=== PATIENT | female | born 1975 | race African-American/Black ===

== ENCOUNTER 2016-05-03 19:32 | Emergency (ER) | payer OTHER ==
[2016-05-03 19:41] VITALS: BP 122/66; PULSE 81; TEMP 97.8; BMI 25.4
--- NOTE | 2016-05-03 21:08 | PDOC ---
History of Present Illness - General History Source: Patient Exam Limitations: No Limitations - History of Present Illness Initial Comments: 05/03/16 21:21 The patient is a 40 year old female, with a significant past medical history of high cholesterol, endometriosis, and GERD who presents to the emergency department with intermittent burning chest pain earlier today. The patient ranks her pain a 4/10 in pain intensity. She notes her pain often radiates to her back, abdomen, and right shoulder. She notes her pain often feels like heaviness when she lays back. She denies any pain in her chest with deep inspirations. She reports seeing her GI doctor earlier this week for constipation and was discharged home with miralax . She denies eating any new/ strange foods. She does note eating more chocolate than normal over the holidays , and notes eating 3 pieces of candy (chocolate turtles) last night. She denies any LEs of swelling. She denies fever, chills, headache and dizziness. She denies nausea, vomit, and diarrhea She denies dysuria, frequency, urgency and hematuria. Allergies: NKA Past surgical history: Appendectomy. Laparoscopy (july,) Social history: Denies any recent EtOH, drugs, and tobacco use. Family history: Heart disease (maternal) <Reginaldo Gonzalez - Last Filed: 05/03/16 21:27> <Elda Lara - Last Filed: 05/04/16 05:06> - General Chief Complaint: Chest Pain Stated Complaint: BURNING TO THE CHEST AREA Time Seen by Provider: 05/03/16 19:50 Past History <Reginaldo Gonzalez - Last Filed: 05/03/16 21:27> - Past Medical History GI Disorders: Yes (REFLUX) - Psycho/Social/Smoking Cessation Hx Anxiety: No Suicidal Ideation: No Smoking History: Never smoked Have you smoked in the past 12 months: No Number of Cigarettes Smoked Daily: 0 Information on smoking cessation initiated: No Hx Alcohol Use: No Drug/Substance Use Hx: No Substance Use Type: None <Elda Lara - Last Filed: 05/04/16 05:06> - Past Medical History Allergies/Adverse Reactions: Allergies Allergy/AdvReac Type Severity Reaction Status Date / Time No Known Allergies Allergy Verified 02/04/16 11:48 Home Medications: Ambulatory Orders Lansoprazole [Prevacid 24Hr (OTC) -] 15 mg PO DAILY 02/04/16 Review of Systems - Review of Systems All Other Systems: Reviewed and Negative <Reginaldo Gonzalez - Last Filed: 05/03/16 21:27> *Physical Exam - Vital Signs Last Vital Signs Temp Pulse Resp BP Pulse Ox 97.8 F 81 14 122/66 100 05/03/16 19:36 05/03/16 19:36 05/03/16 19:36 05/03/16 19:36 05/03/16 19:51 - Physical Exam Comments: 05/03/16 21:21 GENERAL: The patient is awake, alert, and fully oriented, in no acute distress. HEAD: Normal with no signs of trauma. EYES: Pupils equal, round and reactive to light, extraocular movements intact, sclera anicteric, conjunctiva clear with no pallor. ENT: Ears normal, nares patent, oropharynx clear without exudates. Moist mucous membranes. NECK: Normal range of motion, supple without lymphadenopathy, JVD, or masses. CHEST WALL: Mild tenderness to palpation of the left 2nd and 3rd intercostal space. No step offs. No crepitus. LUNGS: Breath sounds equal, clear to auscultation bilaterally. No wheeze/ crackles. HEART: Regular rate and rhythm, normal S1 and S2 without murmur or rub. ABDOMEN: Mild epigastric tenderness. Soft/nondistended. BS wnl. No guarding or rebound. No palpable masses. No hepatosplenomegaly. EXTREMITIES: Normal range of motion, no edema. No clubbing or cyanosis. No cords , erythema, or tenderness. NEUROLOGICAL: Cranial nerves II through XII grossly intact. Normal speech, normal gait. PSYCH: Normal mood, normal affect. SKIN: Warm, Dry, normal turgor, no rashes or lesions noted. <Reginaldo Gonzalez - Last Filed: 05/03/16 21:27> - Vital Signs Last Vital Signs Temp Pulse Resp BP Pulse Ox 97.8 F 81 14 122/66 100 05/03/16 19:36 05/03/16 19:36 05/03/16 19:36 05/03/16 19:36 05/03/16 19:51 <Elda Lara - Last Filed: 05/04/16 05:06> ED Treatment Course - LABORATORY CBC & Chemistry Diagram: 05/03/16 21:48 05/03/16 21:48 <Elda Lara - Last Filed: 05/04/16 05:06> Medical Decision Making - Medical Decision Making Documentation has been prepared under my direction and personally reviewed by me in its entirety. I attest that this documented accurately reflects all work, treatment, procedures and medical decision making performed by me. As noted above, this 40-year-old woman with a history of GERD presents with one- day history of burning type chest pain. Although the patient admits to eating more of her GERD "trigger foods", she does have some risk factors for coronary artery disease. Exam notable for some mild tenderness in the left upper chest and epigastrium. Otherwise, exam is normal. Twelve-lead electrocardiogram shows normal sinus rhythm at 81 bpm; intervals, wave forms and axis are all normal. No evidence of acute ST or T-wave abnormalities. Because the patient has some risk factors for coronary artery disease, chemistry profile with cardiac enzymes as well as CBC was evaluated. Patient also received protonix 40 mg IV Laboratory evaluation is essentially normal. Patient felt significantly better after Protonix. It is likely that most of the patient's pain is secondary to GERD with mild esophagitis. Her chest wall tenderness may signal that she also has some muscle strain involved in the pain that she is experienced today The patient had until recently taken prescription strength PPI; when her symptoms improved, she began [id number] formulations. She states that she will call her PMD tomorrow to ask her advice about changing back to prescription PPI. Meanwhile, she will avoid things that worsen her GERD such as chocolate, acidic foods and alcohol. She should return to the ER if she has persistent severe chest pain or experiences shortness of breath/diaphoresis/nausea <Elda Lara - Last Filed: 05/04/16 05:06> *DC/Admit/Observation/Transfer - Attestations Scribe Attestion: 05/03/16 21:12 Documentation prepared by Reginaldo Gonzalez, acting as medical billing coordinator for Elda Lara MD. <Reginaldo Gonzalez - Last Filed: 05/03/16 21:27> <Elda Lara - Last Filed: 05/04/16 05:06> Diagnosis at time of Disposition: Atypical chest pain GERD (gastroesophageal reflux disease) Qualifiers: Esophagitis presence: with esophagitis Qualified Code(s): K21.0 - Gastro- esophageal reflux disease with esophagitis - Discharge Dispostion Disposition: HOME Condition at time of disposition: Stable - Patient Instructions Printed Discharge Instructions: DI for Atypical Chest Pain, DI for Gastroesophageal Reflux Disease (GERD) Additional Instructions: make sure your head/ upper body is elevated tonight avoid foods that trigger your GERD call your doctor tomorrow as planned return to ER if chest pain worsens
[2016-05-03] MEDS ORDERED: PANTOPRAZOLE SODIUM 40 MG in SODIUM CHLORIDE 100 ML IVPB ONE (21:47)
[2016-05-03] MEDS ORDERED: PANTOPRAZOLE SODIUM 40 MG VIAL ONE (21:50)
[2016-05-03 21:53] LABS: BASOPHIL 1.2 % (0-2.0); EOSINOPHIL 1.2 % (0-4.5); MCH 25.2 pg (25.7-33.7); MCHC 31.7 g/dl (32.0-36.0); MEAN CELL VOLUME 79.7 fl (80-96); MEAN PLT VOLUME 8.6 fl (7.5-11.1); NEUTROPHILS 66.4 % (42.8-82.8); PLATELET COUNT 266 K/MM3 (134-434); RDW 13.4 % (11.6-15.6)
[2016-05-03 22:07] LABS: ALBUMIN 4.1 g/dl (3.5-5.0); ALK PHOS 61 U/L (32-92); ANION GAP 7 (8-16); BILIRUBIN,TOTAL 0.9 mg/dl (0.2-1.0); CO2 25 mmol/L (22-28); CPK(DFH) 84 IU/L (26-140); CREATININE 0.8 mg/dl (0.6-1.3); GLUCOSE,RANDOM 95 mg/dl (74-106); SGOT/AST 28 U/L (10-42); SGPT/ALT 11 U/L (10-40); TOT PROT 7.7 g/dl (6.4-8.3)
[2016-05-03 22:23] LABS: TROPONIN I (DFP) < 0.03 ng/ml (0.03-0.50)
--- NOTE | 2016-05-04 11:15 | EKG ---
Test Reason : Blood Pressure : / mmHG Vent. Rate : 081 BPM Atrial Rate : 081 BPM P-R Int : 194 ms QRS Dur : 070 ms QT Int : 348 ms P-R-T Axes : 048 060 041 degrees QTc Int : 404 ms POOR DATA QUALITY, INTERPRETATION MAY BE ADVERSELY AFFECTED NORMAL SINUS RHYTHM NORMAL ECG NO PREVIOUS ECGS AVAILABLE Confirmed by KATERINA MONTGOMERY MD ([id number]) on 05/04/2016 11:15:09 AM Referred By: REY Confirmed By:KATERINA MONTGOMERY MD
== END 2016-05-03 22:50 | disposition home or self-care (01) ==
LOC: FER 19:32
PROC: 3E033GC Introduction of Other Therapeutic Substance into Peripheral Vein, Percutaneous Approach (ICD-10-PCS; principal; 2016-05-03)
DX: K21.0 Gastro-esophageal reflux disease with esophagitis (principal); E78.00 Pure hypercholesterolemia, unspecified; N80.9 Endometriosis, unspecified
CPT/HCPCS: 36415; 80053; 82550; 84484; 85025; 93005; 99284-25

== ENCOUNTER 2017-08-24 08:35 | Emergency (ER) | payer OTHER ==
--- NOTE | 2017-08-24 08:37 | PDOC ---
History of Present Illness - General Chief Complaint: Diarrhea Stated Complaint: N/V/D Time Seen by Provider: 08/24/17 08:36 History Source: Patient Exam Limitations: No Limitations - History of Present Illness Initial Comments: 08/24/17 08:42 Mr. Marshall is a 42 -year-old female with a history of endometriosis and GERD as well as gastroparesis. She presents emergency department with a complaint of abdominal pain. Patient states she was recently started on Augmentin for sinusitis. She took her first dose on morning. She tolerated this well. On oral yesterday evening she took her second dose at a possibly 9 PM. She drank water, had something to eat, as well as a banana. She awoke at a possibly 1 AM with abdominal cramping, nausea. She had to force herself to vomit in order to feel better. At the time her abdominal pain was 7-8/10. She noted pain only in the upper abdomen in the epigastrium and left upper quadrant. She likens this to her gastroparesis pain. She had one episode of watery diarrhea. She denies fevers or chills. She denies changes in her diet-undercooked meat, raw shellfish. PMH: Gastroparesis, gastric tragus, endometriosis PSH: Appendectomy, laparoscopy 3, respiratory. Medications: Prevacid as needed, off the Depo shot. ALLERGIES: No known ALLERGIES Social: Denies drug use, denies excessive alcohol use GENERAL/CONSTITUTIONAL: No: fever, chills, weakness, loss of appetite. HEAD, EYES, EARS, NOSE AND THROAT: No: change in vision, ear pain, discharge, sore throat, throat swelling. CARDIOVASCULAR: No: chest pain, lightheadedness, palpitations, syncope RESPIRATORY: No: cough, shortness of breath, wheezing, hemoptysis, stridor. GASTROINTESTINAL: Yes: nausea, vomiting, diarrhea x 1, abdominal cramping GENITOURINARY: No: dysuria, hematuria, frequency, urgency, flank pain. MUSCULOSKELETAL: No: back pain, neck pain, joint pain, muscle swelling or pain SKIN AND BREASTS: No: lesions, pallor, rash or easy bruising. NEUROLOGIC: No: headache, vertigo, paresthesias, weakness ENDOCRINE: No: unexplained weight gain or loss HEMATOLOGIC/LYMPHATIC: No: anemia, easy bleeding, swelling nodes. GENERAL: The patient is in no acute distress. HEAD: Normal with no signs of trauma. EYES: PERRLA, EOMI, sclera anicteric, conjunctiva clear. ENT: Ears normal, nares patent, oropharynx clear without exudates. Moist mucous membranes. NECK: Normal range of motion, supple LUNGS: Breath sounds equal, clear to auscultation bilaterally. No wheezes, and no crackles. HEART:Regular rate and rhythm, normal S1 and S2 without murmur, rub or gallop. ABDOMEN: Soft, minimally tender to palpation in the epigastrum and luq EXTREMITIES: Normal range of motion, no edema NEUROLOGICAL: Cranial nerves II through XII grossly intact. Normal speech. No focal neurological deficits. MUSCULOSKELETAL: Back non-tender to palpation, no CVA tenderness SKIN: Warm, Dry, normal turgor, no rashes or lesions noted. Past History - Past Medical History Allergies/Adverse Reactions: Allergies Allergy/AdvReac Type Severity Reaction Status Date / Time No Known Allergies Allergy Verified 08/24/17 08:36 Home Medications: Ambulatory Orders Lansoprazole [Prevacid 24Hr (OTC) -] 15 mg PO DAILY 02/04/16 Amoxicillin/Potassium Clav [Augmentin 875-125 Tablet] 1 each PO BID 08/24/17 Hyoscyamine Odt [Levsin Odt -] 0.125 mg PO BID PRN #10 tab.rapdis 08/24/17 Ondansetron HCl [Zofran] 4 mg PO BID PRN #10 tablet 08/24/17 GI Disorders: Yes (REFLUX) - Suicide/Smoking/Psychosocial Hx Smoking History: Never smoked Have you smoked in the past 12 months: No Number of Cigarettes Smoked Daily: 0 Hx Alcohol Use: No Drug/Substance Use Hx: No Substance Use Type: None Medical Decision Making - Medical Decision Making 08/24/17 08:45 Patient examination is not concerning for small bowel obstruction. Patient has pain in the left upper quadrant, and epigastric pain which she likens to her gastroparesis. Will start by treating with Zofran, Protonix, hyoscyamine. Will reassess 08/24/17 10:02 Pain improved Pt given po challenge - crackers and juice Will re assess 08/24/17 10:14 Sx improved Will discharge to home Follow up with ENT and PMD Clinical Impression: gastroparesis, initial presentation Gastritis, initial presentation Reaction to antibiotic, initial presentation *DC/Admit/Observation/Transfer Diagnosis at time of Disposition: GERD (gastroesophageal reflux disease) Qualifiers: Esophagitis presence: without esophagitis Qualified Code(s): K21.9 - Gastro- esophageal reflux disease without esophagitis - Discharge Dispostion Condition at time of disposition: Stable Admit: No - Referrals - Patient Instructions Printed Discharge Instructions: Gastritis (Alternative Therapy), DI for Gastritis Additional Instructions: Ms. Lopez, Thank you for coming into the emergency department today. Please take medications as prescribed today (if needed) Review need for augmentin with your doctor Please eat small meals throughout the day. Please monitor herself for fever or chills. If he notices any worsening symptoms, please return to the emergency department - Post Discharge Activity Forms/Work/School Notes: Back to Work
[2017-08-24] MEDS ORDERED: HYOSCYAMINE SULFATE 0.125 MG *ODT PO ONE (08:45)
[2017-08-24] MEDS ORDERED: ONDANSETRON *ODT* 4 MG TABLET SL ONE (08:45)
[2017-08-24] MEDS ORDERED: PANTOPRAZOLE 20 MG TABLET (FP) PO ONE (08:45)
[2017-08-24 08:52] VITALS: BP 114/70; PULSE 79; TEMP 98.8; BMI 23.4
[2017-08-24] MEDS ORDERED: PANTOPRAZOLE 40 MG TABLET (FP) ONE (09:00)
[2017-08-24] MEDS ORDERED: HYOSCYAMINE SULFATE 0.125 MG *ODT ONE (09:01)
[2017-08-24] MEDS ORDERED: ONDANSETRON *ODT* 4 MG TABLET ONE (09:01)
== END 2017-08-24 10:19 | disposition home or self-care (01) ==
LOC: FER 08:35
DX: K21.9 Gastro-esophageal reflux disease without esophagitis (principal)
CPT/HCPCS: 99282-25; Q0162

== ENCOUNTER 2018-06-01 11:17 | Emergency (ER) | payer OTHER ==
[2018-06-01 11:23] VITALS: BP 129/81; PULSE 97; TEMP 98.7; BMI 24.4
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
== END 2018-06-01 13:20 | disposition home or self-care (01) ==
LOC: FER 11:17
DX: M25.561 Pain in right knee (principal); K21.9 Gastro-esophageal reflux disease without esophagitis
CPT/HCPCS: 73562-TC-RT-FY; 99282-25

== ENCOUNTER 2018-07-08 19:29 | Emergency (ER) | payer OTHER ==
[2018-07-08 19:39] VITALS: BP 132/73; PULSE 96; TEMP 98.2; BMI 24.4
--- NOTE | 2018-07-08 20:04 | PDOC ---
History of Present Illness - General History Source: Patient Exam Limitations: No Limitations - History of Present Illness Initial Comments: 07/08/18 21:47 The patient is a 42 year old female, with a significant PMH of acid reflux and gastroparesis, who presents to the emergency department with chest pain that began around 6:30 pm today. The patient states she experiences 4 episodes of fast sharp upper anterior chest pain that lasted for a few seconds after dinner. The patient denies shortness of breath, headache and dizziness.Denies fever, chills, nausea, vomit, diarrhea and constipation. Allergies: amoxicillin, cefdinir, clavulanic acid Past surgical history: None reported Social history: None reported PCP: None reported <Deyvi Mendosa - Last Filed: 07/08/18 21:47> <Elda Lara - Last Filed: 07/09/18 03:49> - General Chief Complaint: Pain, Acute Stated Complaint: PAIN ACROSS UPPER CHEST Time Seen by Provider: 07/08/18 19:31 Past History <Deyvi Mendosa - Last Filed: 07/08/18 21:47> - Past Medical History COPD: No GI Disorders: Yes (ACID REFLUX, GASTROPARESIS) - Suicide/Smoking/Psychosocial Hx Smoking History: Never smoked Have you smoked in the past 12 months: No Number of Cigarettes Smoked Daily: 0 Information on smoking cessation initiated: No Hx Alcohol Use: No Drug/Substance Use Hx: No Substance Use Type: None <Elda Lara - Last Filed: 07/09/18 03:49> - Past Medical History Allergies/Adverse Reactions: Allergies Allergy/AdvReac Type Severity Reaction Status Date / Time amoxicillin [From Augmentin] Allergy Verified 07/08/18 19:40 cefdinir Allergy Verified 07/08/18 19:40 clavulanic acid Allergy Verified 07/08/18 19:40 [From Augmentin] Home Medications: Ambulatory Orders Medroxyprogesterone Acetate [Depo-Provera] 150 mg IM ASDIR 06/01/18 Lansoprazole [Prevacid] 15 mg PO DAILY 07/08/18 Ranitidine HCl [Zantac] 150 mg PO PRN 07/08/18 Review of Systems - Review of Systems Able to Perform ROS?: Yes Comments:: 07/08/18 21:47 GENERAL/CONSTITUTIONAL: No fever or chills. No weakness. HEAD, EYES, EARS, NOSE AND THROAT: No change in vision. No ear pain or discharge. No sore throat. CARDIOVASCULAR:+chest pain. No shortness of breath. RESPIRATORY: No cough, wheezing, or hemoptysis. GASTROINTESTINAL: No nausea, vomiting, diarrhea or constipation. GENITOURINARY: No dysuria, frequency, or change in urination. MUSCULOSKELETAL: No joint or muscle swelling or pain. No neck or back pain. SKIN: No rash NEUROLOGIC: No headache, vertigo, loss of consciousness, or change in strength/ sensation. ENDOCRINE: No increased thirst. No abnormal weight change. HEMATOLOGIC/LYMPHATIC: No anemia, easy bleeding, or history of blood clots. ALLERGIC/IMMUNOLOGIC: No hives or skin allergy. <Deyvi Mendosa - Last Filed: 07/08/18 21:47> *Physical Exam - Vital Signs Last Vital Signs Temp Pulse Resp BP Pulse Ox 98.2 F 96 H 16 132/73 100 07/08/18 19:35 07/08/18 19:35 07/08/18 19:35 07/08/18 19:35 07/08/18 19:35 - Physical Exam Comments: 07/08/18 21:47 GENERAL: Awake, alert, and fully oriented, in no acute distress HEAD: No signs of trauma EYES: PERRLA, EOMI, sclera anicteric, conjunctiva clear LUNGS: Breath sounds equal, clear to auscultation bilaterally. No wheezes, and no crackles HEART: Regular rate and rhythm, normal S1 and S2, no murmurs, rubs or gallops ABDOMEN: +Mild epigastric pain no rebound, masses, or involuntary guarding. NEUROLOGICAL: Cranial nerves II through XII grossly intact. Normal speech. SKIN: Warm, Dry, normal turgor, no rashes or lesions noted. <Deyvi Mendosa - Last Filed: 07/08/18 21:47> - Vital Signs Last Vital Signs Temp Pulse Resp BP Pulse Ox 98.2 F 96 H 16 132/73 100 07/08/18 19:35 07/08/18 19:35 07/08/18 19:35 07/08/18 19:35 07/08/18 19:35 <Elda Lara - Last Filed: 07/09/18 03:49> Moderate Sedation - Procedure Monitoring Vital Signs: Procedure Monitoring Vital Signs Temperature 98.2 F 07/08/18 19:35 Pulse Rate 96 H 07/08/18 19:35 Respiratory Rate 16 07/08/18 19:35 Blood Pressure 132/73 07/08/18 19:35 O2 Sat by Pulse Oximetry (%) 100 07/08/18 19:35 <Deyvi Mendosa - Last Filed: 07/08/18 21:47> - Procedure Monitoring Vital Signs: Procedure Monitoring Vital Signs Temperature 98.2 F 07/08/18 19:35 Pulse Rate 96 H 07/08/18 19:35 Respiratory Rate 16 07/08/18 19:35 Blood Pressure 132/73 07/08/18 19:35 O2 Sat by Pulse Oximetry (%) 100 07/08/18 19:35 <Elda Lara - Last Filed: 07/09/18 03:49> Medical Decision Making - Medical Decision Making Documentation has been prepared under my direction and personally reviewed by me in its entirety. I attest that this documented accurately reflects all work, treatment, procedures and medical decision making performed by me. As noted above, this 42-year-old woman with a history of GERD and HLD, presents with history of 4 separate episodes of very short (few seconds long) duration sharp chest pain occurring as patient was eating dinner this evening. She denies shortness of breath/diaphoresis/nausea. Pain was not pleuritic in nature. He episodes occurred approximately an hour prior to presentation in the ER. No further episodes have occurred. No previous history of this type of pain. Patient states that her diet has not changed and she attempts to avoid reflux provoking foods. She takes Prevacid OTC every other day for her GERD. Exam as noted. Coronary artery disease risk factors: HLD; otherwise negative 12-lead electrocardiogram is performed and interpreted by me. Normal sinus rhythm at 88 bpm; intervals/axis/wave forms are all normal. No evidence of acute ST or T-wave abnormalities. No evidence of acute cardiac arrythmia. Because the patient has only one risk factor for coronary artery disease , episodes of very brief/sharp pains have subsided without any new symptoms developing and 12-lead electrocardiogram was completely negative, it is very unlikely that patient's pain is related to myocardial ischemia/infarction. Patient will be discharged with suggestions to continue to modify her diet to avoid reflux provoking foods. It was suggested that she take her Prevacid daily for the next week or so. She should follow-up with her doctor within the next 4-5 days. If she has any return of this pain or experiences shortness of breath/diaphoresis/nausea, she should return to the emergency room <Elda Lara - Last Filed: 07/09/18 03:49> *DC/Admit/Observation/Transfer - Attestations Scribe Attestion: 07/08/18 21:47 Documentation prepared by Deyvi Mendosa, acting as mobile paramedical examiner for Elda Lara MD. <Deyvi Mendosa - Last Filed: 07/08/18 21:47> <Elda Lara - Last Filed: 07/09/18 03:49> Diagnosis at time of Disposition: Atypical chest pain - Discharge Dispostion Disposition: HOME Condition at time of disposition: Stable - Patient Instructions Printed Discharge Instructions: DI for Atypical Chest Pain, GERD Diet Additional Instructions: Take Prevacid daily for the next week continue GERD diet return to ER immediately if you have sustained chest pain, shortness of breath, nausea followup with your doctor within 5 days
--- NOTE | 2018-07-09 13:36 | EKG ---
Test Reason : Blood Pressure : / mmHG Vent. Rate : 088 BPM Atrial Rate : 088 BPM P-R Int : 166 ms QRS Dur : 074 ms QT Int : 354 ms P-R-T Axes : 066 068 037 degrees QTc Int : 428 ms NORMAL SINUS RHYTHM NORMAL ECG WHEN COMPARED WITH ECG OF 03-MAY-2016 21:30, NO SIGNIFICANT CHANGE WAS FOUND Confirmed by MD LESTER, ASHLIE ([id number]) on 07/09/2018 1:36:12 PM Referred By: Confirmed By:ASHLIE BATISTA MD
== END 2018-07-08 21:43 | disposition home or self-care (01) ==
LOC: FER 19:29
DX: R07.89 Other chest pain (principal); K21.9 Gastro-esophageal reflux disease without esophagitis; E78.5 Hyperlipidemia, unspecified
CPT/HCPCS: 93005; 99281-25